=== PATIENT | male | born 1950 | race Caucasian/White ===

== ENCOUNTER 2018-01-14 08:02 | Emergency (ER) | payer MEDICARE, OTHER ==
[~2018-01-14] VITALS: Ht 167.6 cm; Wt 67.3 kg
[~2018-01-14 08:02] MED LIST: BENAZEPRIL HCL20 MG PO; CLOPIDOGREL75 M1 PO; LEVOTHYROXINE0.05 MG PO; LORAZEPAM0.5 M1 PO; PREDNISONE10 MG PO; SIMVASTATIN10 M1 PO; SYMBICORT1 AE3 IH; TAMSULOSIN HCL0.4 MG PO
[2018-01-14 08:50] LABS: EOS # 0.2 (0.04-0.40); HEMATOCRIT 45.6 % (42.0-52.0); HEMOGLOBIN 15.3 g/dL (13.5-18.0); LYMPH# 1.4 (1.50-4.00); MEAN CELL VOLUME 85 fl (78-100); MEAN CORPUSCULAR HEMOGLOBIN 28 pg (27-31); MEAN CORPUSCULAR HGB CONC 34 g/dL (33-37); MEAN PLATELET VOLUME 9.5 fl (7.4-10.4); NEU # 6.7 (1.40-6.50); PLATELET COUNT 195 K/mm3 (130-400); RED BLOOD COUNT 5.39 M/mm3 (4.20-5.60); WHITE BLOOD COUNT 9.3 K/mm3 (4.8-10.8)
[2018-01-14 08:57] LABS: ALBUMIN 3.7 g/dL (3.5-5.0); BUN/CREATININE RATIO 13.7 (6.0-26.0); CALCIUM 9.5 mg/dL (8.4-10.2); POTASSIUM 3.8 mmol/L (3.6-5.0); TOTAL BILIRUBIN 0.7 mg/dL (0.2-1.3); TOTAL PROTEIN 6.6 g/dL (6.3-8.2)
[2018-01-14 09:01] LABS: URINE APPEARANCE CLEAR; URINE BILIRUBIN NEGATIVE (NEGATIVE); URINE BLOOD NEGATIVE (NEGATIVE); URINE COLOR YELLOW; URINE GLUCOSE NEGATIVE (NEGATIVE); URINE KETONE NEGATIVE (NEGATIVE); URINE LEUKOCYTE ESTERASE NEGATIVE (NEGATIVE); URINE MUCUS PRESENT (NOT PRESENT); URINE NITRATE NEGATIVE (NEGATIVE); URINE PROTEIN(semi-quant) TRACE mg/dL (NEGATIVE); URINE UROBILINOGEN NORMAL (NORMAL); URINE WBC 0-1 /hpf (0-3)
[2018-01-14] MEDS ORDERED: MIRALAX119 GM PO (11:14)
[2018-01-14] MEDS ORDERED: NAPROSYN500 M1 PO (11:14)
[2018-01-14 11:23] VITALS: BP 115/70
== END 2018-01-14 11:19 | disposition home or self-care (01) ==
LOC: ED 08:02
PROVIDERS: Physician Assistant
DX: K59.00 Constipation, unspecified (principal); S39.011A Strain of muscle, fascia and tendon of abdomen, initial encounter; X50.9XXA Other and unspecified overexertion or strenuous movements or postures, initial encounter; I10 Essential (primary) hypertension; E78.5 Hyperlipidemia, unspecified; Z86.73 Personal history of transient ischemic attack (TIA), and cerebral infarction without residual deficits; E03.9 Hypothyroidism, unspecified; N40.0 Benign prostatic hyperplasia without lower urinary tract symptoms; G25.81 Restless legs syndrome; J45.909 Unspecified asthma, uncomplicated; Z79.02 Long term (current) use of antithrombotics/antiplatelets
CPT/HCPCS: J7030; Q9967

== ENCOUNTER → 2020-02-24 | Outpatient (CLI) | payer MEDICARE, OTHER ==
[~2020-02-24] MED LIST changes: +MIRALAX119 GM PO; +NAPROSYN500 M1 PO
[2020-02-24 10:16] LABS: HEMATOCRIT 41.8 % (42.0-52.0); HEMOGLOBIN 13.6 g/dL (13.5-18.0); MEAN CELL VOLUME 84 fl (78-100); MEAN CORPUSCULAR HEMOGLOBIN 27 pg (27-31); MEAN CORPUSCULAR HGB CONC 33 g/dL (33-37); MEAN PLATELET VOLUME 9.4 fl (7.4-10.4); PLATELET COUNT 319 K/mm3 (130-400); RED BLOOD COUNT 4.98 M/mm3 (4.20-5.60); RED CELL DISTRIBUTION WIDTH 13.9 % (11.5-14.5); WHITE BLOOD COUNT 12.7 K/mm3 (4.8-10.8)
[2020-02-24 10:19] LABS: ALBUMIN 3.9 g/dL (3.4-4.8); POTASSIUM 4.2 mmol/L (3.5-5.1)
[2020-02-24 10:20] LABS: CALCIUM 9.6 mg/dL (8.3-10.5)
[2020-02-24 10:21] LABS: TOTAL PROTEIN 7.3 g/dL (6.2-8.1)
[2020-02-24 10:23] LABS: TOTAL BILIRUBIN 0.5 mg/dL (0.2-1.2)
[2020-02-24 10:28] LABS: MAGNESIUM 1.94 mg/dL (1.60-2.60)
[2020-02-24 10:32] LABS: PARTIAL THROMBOPLASTIN TIME 25.2 SECONDS (21.0-32.0); PROTHROMBIN TIME 9.9 SECONDS (9.0-12.0)
[2020-02-24 11:42] LABS: LYMPHOCYTE 11 % (20-51); MONOCYTE 10 % (3-10); NEUTROPHILS 74 % (42-75)
[2020-02-24 14:24] LABS: PH-URINE 5.5 (5.0 - 8.0); URINE APPEARANCE CLOUDY; URINE COLOR YELLOW; URINE GLUCOSE NEGATIVE (NEGATIVE); URINE PROTEIN(semi-quant) TRACE mg/dL (NEGATIVE)
[2020-02-24 14:25] LABS: URINE BILIRUBIN NEGATIVE (NEGATIVE); URINE BLOOD TRACE (NEGATIVE); URINE KETONE 1+ (NEGATIVE); URINE LEUKOCYTE ESTERASE TRACE (NEGATIVE); URINE NITRATE NEGATIVE (NEGATIVE); URINE UROBILINOGEN NORMAL (NORMAL)
== END ==
LOC: RAD 09:38
PROVIDERS: Internal Medicine
DX: Z01.818 Encounter for other preprocedural examination (principal); I73.9 Peripheral vascular disease, unspecified

== ENCOUNTER → 2020-02-25 | Outpatient (CLI) | payer MEDICARE, OTHER | LOC: CARDREHAB 08:39 → CARDLAB 12:39 | DX: Z01.818 Encounter for other preprocedural examination (principal); I73.9 Peripheral vascular disease, unspecified | CPT/HCPCS: A9500 ==

== ENCOUNTER → 2020-05-09 | Outpatient (CLI) | payer MEDICARE, OTHER ==
[2020-05-09 11:57] LABS: EOS # 0.6 (0.04-0.40); HEMATOCRIT 44.3 % (42.0-52.0); HEMOGLOBIN 13.9 g/dL (13.5-18.0); LYMPH# 1.3 (1.50-4.00); MEAN CELL VOLUME 83 fl (78-100); MEAN CORPUSCULAR HEMOGLOBIN 26 pg (27-31); MEAN CORPUSCULAR HGB CONC 31 g/dL (33-37); MEAN PLATELET VOLUME 9.1 fl (7.4-10.4); MONO # 0.8 (0.20-0.80); NEU # 5.2 (1.40-6.50); PLATELET COUNT 266 K/mm3 (130-400); RED BLOOD COUNT 5.36 M/mm3 (4.20-5.60); WHITE BLOOD COUNT 7.9 K/mm3 (4.8-10.8)
[2020-05-09 12:02] LABS: POTASSIUM 4.1 mmol/L (3.5-5.1)
[2020-05-09 12:03] LABS: CALCIUM 9.5 mg/dL (8.3-10.5)
[2020-05-09 12:05] LABS: TOTAL PROTEIN 7.5 g/dL (6.2-8.1)
[2020-05-09 12:07] LABS: TOTAL BILIRUBIN 0.5 mg/dL (0.2-1.2)
[2020-05-09 12:54] LABS: EOS % 7.7 % (0.0-4.0)
== END ==
LOC: LAB 11:42
PROVIDERS: Internal Medicine
DX: Z12.5 Encounter for screening for malignant neoplasm of prostate (principal); I10 Essential (primary) hypertension; E78.5 Hyperlipidemia, unspecified; R20.2 Paresthesia of skin

== ENCOUNTER 2020-10-09 16:55 | Emergency (ER) | payer MEDICARE, OTHER ==
[2020-10-09 17:32] LABS: HEMOGLOBIN 13.2 g/dL (13.5-18.0); MEAN CELL VOLUME 81 fl (78-100); MEAN CORPUSCULAR HEMOGLOBIN 27 pg (27-31); MEAN CORPUSCULAR HGB CONC 33 g/dL (33-37); MEAN PLATELET VOLUME 9.4 fl (7.4-10.4); PLATELET COUNT 209 K/mm3 (130-400); RED BLOOD COUNT 4.97 M/mm3 (4.20-5.60); RED CELL DISTRIBUTION WIDTH 14.6 % (11.5-14.5); WHITE BLOOD COUNT 11.4 K/mm3 (4.8-10.8)
[2020-10-09] MEDS ORDERED: VITAMIN D325 MC1 PO (17:35)
[2020-10-09] MEDS ORDERED: BUDESONIDE-FO10.2 GM IH (17:35)
[2020-10-09] MEDS ORDERED: FAMOTIDINE20 MG PO (17:36)
[2020-10-09] MEDS ORDERED: NEURONTIN300 MG/CAP (17:36)
[2020-10-09] MEDS ORDERED: SINGULAIR 110 MG/TAB PO (17:38)
[2020-10-09] MEDS ORDERED: FLOMAX0.4 MG PO (17:38)
[2020-10-09 17:40] LABS: LYMPHOCYTE 8 % (20-51); MONOCYTE 11 % (3-10); NEUTROPHILS 80 % (42-75)
[2020-10-09 17:41] LABS: ALBUMIN 3.3 g/dL (3.4-4.8); POTASSIUM 3.8 mmol/L (3.5-5.1)
[2020-10-09 17:42] LABS: SODIUM 133 mmol/L (136-145)
[2020-10-09 17:44] LABS: GLUCOSE 116 mg/dL (75-110); TOTAL PROTEIN 6.5 g/dL (6.2-8.1)
[2020-10-09 17:45] LABS: CARBON DIOXIDE 25 mmol/L (23-31)
[2020-10-09 17:46] LABS: D-DIMER 0.75 mg/L FEU (0.15-0.50); TOTAL BILIRUBIN 0.6 mg/dL (0.2-1.2)
[2020-10-09 17:49] LABS: AST-SGOT 10 U/L (5-34)
[2020-10-09 17:50] LABS: ALT/SGPT 13 U/L (0-55)
[2020-10-09 17:56] LABS: TROPONIN-I < 0.03 ng/mL (<0.030)
[2020-10-09 18:39] LABS: ERYTHROCYTE SEDIMENTATION RATE 70 mm/hr (0-20)
[2020-10-09] MEDS ORDERED: AUGMENTIN 875-1 EAC1 PO ×5 (19:05→19:37)
[2020-10-09] MEDS ORDERED: MORGIDOX 1X100100 MG PO ×3 (19:08→19:37)
[2020-10-09] MEDS ORDERED: NYSTATIN 100MU/M1 ML PO ×3 (19:08→19:39)
[2020-10-09 19:36] VITALS: BP 135/100
== END 2020-10-09 19:36 | disposition home or self-care (01) ==
LOC: ED 16:55
PROVIDERS: Physician Assistant
DX: J18.9 Pneumonia, unspecified organism (principal); K42.9 Umbilical hernia without obstruction or gangrene; B37.9 Candidiasis, unspecified; I10 Essential (primary) hypertension; J44.9 Chronic obstructive pulmonary disease, unspecified; E03.9 Hypothyroidism, unspecified; E78.5 Hyperlipidemia, unspecified; Z20.828 Contact with and (suspected) exposure to other viral communicable diseases; Z79.890 Hormone replacement therapy; Z79.51 Long term (current) use of inhaled steroids
CPT/HCPCS: Q9967

== ENCOUNTER → 2020-11-08 | Outpatient (CLI) | payer MEDICARE, OTHER ==
[2020-10-09 19:36] VITALS: BP 135/100
[~2020-11-08] MED LIST changes: +AUGMENTIN 875-1 EAC1 PO; +BUDESONIDE-FO10.2 GM IH; +FAMOTIDINE20 MG PO; +FLOMAX0.4 MG PO; +MORGIDOX 1X100100 MG PO; +NEURONTIN300 MG/CAP; +NYSTATIN 100MU/M1 ML PO; +SINGULAIR 110 MG/TAB PO; +VITAMIN D325 MC1 PO
== END ==
LOC: RAD 09:00
DX: K57.30 Diverticulosis of large intestine without perforation or abscess without bleeding (principal); K86.9 Disease of pancreas, unspecified
CPT/HCPCS: Q9967

== ENCOUNTER → 2020-11-09 | Outpatient (CLI) | payer MEDICARE, OTHER | LOC: RAD 14:22 | DX: K86.2 Cyst of pancreas (principal) | CPT/HCPCS: A9585 ==

== ENCOUNTER → 2021-04-16 | Outpatient (CLI) | payer MEDICARE, OTHER ==
[2021-04-16 09:20] LABS: BASO # 0.04 (0.02-0.10); EOS # 0.12 (0.04-0.40); EOS % 1.6 % (0.0-4.0); HEMATOCRIT 45.1 % (42.0-52.0); HEMOGLOBIN 14.9 g/dL (13.5-18.0); LYMPH# 1.07 (1.50-4.00); MEAN CELL VOLUME 82 fl (78-100); MEAN CORPUSCULAR HEMOGLOBIN 27 pg (27-31); MEAN CORPUSCULAR HGB CONC 33 g/dL (33-37); MEAN PLATELET VOLUME 9.3 fl (7.4-10.4); MONO # 0.57 (0.20-0.80); NEU # 5.44 (1.40-6.50); PLATELET COUNT 260 K/mm3 (130-400); RED BLOOD COUNT 5.47 M/mm3 (4.20-5.60); RED CELL DISTRIBUTION WIDTH 14.4 % (11.5-14.5); WHITE BLOOD COUNT 7.5 K/mm3 (4.8-10.8)
[2021-04-16 09:32] LABS: ALBUMIN 3.8 g/dL (3.4-4.8); POTASSIUM 4.4 mmol/L (3.5-5.1)
[2021-04-16 09:33] LABS: CALCIUM 9.1 mg/dL (8.3-10.5)
[2021-04-16 09:35] LABS: TOTAL PROTEIN 7.1 g/dL (6.2-8.1)
[2021-04-16 09:36] LABS: TOTAL BILIRUBIN 0.4 mg/dL (0.2-1.2)
[2021-04-16 09:41] LABS: MAGNESIUM 1.98 mg/dL (1.60-2.60)
[2021-04-16 11:02] LABS: ERYTHROCYTE SEDIMENTATION RATE 28 mm/hr (0-20)
[2021-04-17 00:31] LABS: IMMUNOGLOBULIN E, TOTAL 741 IU/mL (0-100)
== END ==
LOC: LAB 08:46
PROVIDERS: Internal Medicine
DX: Z12.11 Encounter for screening for malignant neoplasm of colon (principal); Z12.5 Encounter for screening for malignant neoplasm of prostate; E03.4 Atrophy of thyroid (acquired); K90.9 Intestinal malabsorption, unspecified; I10 Essential (primary) hypertension; J30.1 Allergic rhinitis due to pollen

== ENCOUNTER → 2021-04-20 | Outpatient (CLI) | payer MEDICARE, OTHER | LOC: LAB 09:53 | DX: Z12.11 Encounter for screening for malignant neoplasm of colon (principal) ==

== ENCOUNTER → 2021-11-21 | Outpatient (CLI) | payer MEDICARE, OTHER | LOC: RAD 11:57 | DX: S22.31XA Fracture of one rib, right side, initial encounter for closed fracture (principal) ==

== ENCOUNTER → 2022-02-13 | Outpatient (CLI) | payer MEDICARE, OTHER | LOC: RAD 08:01 | DX: J01.20 Acute ethmoidal sinusitis, unspecified (principal); S09.90XD Unspecified injury of head, subsequent encounter ==

== ENCOUNTER → 2022-04-23 | Outpatient (CLI) | payer MEDICARE, OTHER ==
[2022-04-23 09:31] LABS: BASO # 0.05 K/mm3 (0.02-0.10); EOS # 0.13 K/mm3 (0.04-0.40); HEMATOCRIT 45.5 % (42.0-52.0); HEMOGLOBIN 14.8 g/dL (13.5-18.0); LYMPH# 1.09 K/mm3 (1.50-4.00); MEAN CELL VOLUME 84 fl (78-100); MEAN CORPUSCULAR HEMOGLOBIN 27 pg (27-31); MEAN CORPUSCULAR HGB CONC 33 g/dL (33-37); MEAN PLATELET VOLUME 9.2 fl (7.4-10.4); MONO # 0.54 K/mm3 (0.20-0.80); NEU # 4.75 K/mm3 (1.40-6.50); PLATELET COUNT 199 K/mm3 (130-400); RED BLOOD COUNT 5.44 M/mm3 (4.20-5.60); RED CELL DISTRIBUTION WIDTH 14.7 % (11.5-14.5); WHITE BLOOD COUNT 6.6 K/mm3 (4.8-10.8)
[2022-04-23 09:37] LABS: ALBUMIN 3.9 g/dL (3.4-4.8); POTASSIUM 4.1 mmol/L (3.5-5.1)
[2022-04-23 09:38] LABS: CALCIUM 9.2 mg/dL (8.3-10.5)
[2022-04-23 09:40] LABS: TOTAL PROTEIN 6.7 g/dL (6.2-8.1)
[2022-04-23 09:41] LABS: TOTAL BILIRUBIN 0.8 mg/dL (0.2-1.2)
[2022-04-23 10:39] LABS: ERYTHROCYTE SEDIMENTATION RATE 3 mm/hr (0-20)
== END ==
LOC: LAB 09:06
PROVIDERS: Internal Medicine
DX: Z12.5 Encounter for screening for malignant neoplasm of prostate (principal); Z12.11 Encounter for screening for malignant neoplasm of colon; E03.4 Atrophy of thyroid (acquired); K90.9 Intestinal malabsorption, unspecified; I10 Essential (primary) hypertension; E78.2 Mixed hyperlipidemia; J44.9 Chronic obstructive pulmonary disease, unspecified; G63 Polyneuropathy in diseases classified elsewhere; K21.00 Gastro-esophageal reflux disease with esophagitis, without bleeding; G25.81 Restless legs syndrome

== ENCOUNTER → 2022-09-26 | Outpatient (CLI) | payer MEDICARE, OTHER ==
[2022-09-26 08:57] LABS: BASO # 0.05 K/mm3 (0.02-0.10); EOS # 0.36 K/mm3 (0.04-0.40); EOS % 3.8 % (0.0-4.0); HEMOGLOBIN 14.9 g/dL (13.5-18.0); MEAN CELL VOLUME 84 fl (78-100); MEAN CORPUSCULAR HEMOGLOBIN 27 pg (27-31); MEAN CORPUSCULAR HGB CONC 32 g/dL (33-37); MEAN PLATELET VOLUME 9.9 fl (7.4-10.4); MONO # 0.64 K/mm3 (0.20-0.80); NEU # 6.79 K/mm3 (1.40-6.50); PLATELET COUNT 180 K/mm3 (130-400); RED BLOOD COUNT 5.49 M/mm3 (4.20-5.60); RED CELL DISTRIBUTION WIDTH 13.5 % (11.5-14.5); WHITE BLOOD COUNT 9.4 K/mm3 (4.8-10.8)
[2022-09-26 09:07] LABS: ALBUMIN 3.9 g/dL (3.4-4.8); POTASSIUM 4.3 mmol/L (3.5-5.1)
[2022-09-26 09:08] LABS: CALCIUM 9.2 mg/dL (8.3-10.5)
[2022-09-26 09:09] LABS: TOTAL PROTEIN 6.9 g/dL (6.2-8.1)
[2022-09-26 09:11] LABS: TOTAL BILIRUBIN 0.9 mg/dL (0.2-1.2)
[2022-09-26 09:16] LABS: MAGNESIUM 1.86 mg/dL (1.60-2.60)
[2022-09-26 10:19] LABS: ERYTHROCYTE SEDIMENTATION RATE 3 mm/hr (0-20)
== END ==
LOC: LAB 08:32
PROVIDERS: Internal Medicine
DX: I10 Essential (primary) hypertension (principal); E03.4 Atrophy of thyroid (acquired); E78.2 Mixed hyperlipidemia; K90.9 Intestinal malabsorption, unspecified; J44.9 Chronic obstructive pulmonary disease, unspecified; G63 Polyneuropathy in diseases classified elsewhere; K21.00 Gastro-esophageal reflux disease with esophagitis, without bleeding; G25.81 Restless legs syndrome; E53.8 Deficiency of other specified B group vitamins; Z23 Encounter for immunization

== ENCOUNTER → 2023-10-24 | Outpatient (CLI) | payer MEDICARE, OTHER ==
[2023-10-24 09:02] LABS: BASO # 0.06 K/mm3 (0.02-0.10); EOS # 0.27 K/mm3 (0.04-0.40); EOS % 3.3 % (0.0-4.0); HEMATOCRIT 47.9 % (42.0-52.0); HEMOGLOBIN 15.4 g/dL (13.5-18.0); LYMPH# 1.49 K/mm3 (1.50-4.00); MEAN CELL VOLUME 86 fl (78-100); MEAN CORPUSCULAR HEMOGLOBIN 28 pg (27-31); MEAN CORPUSCULAR HGB CONC 32 g/dL (33-37); MEAN PLATELET VOLUME 9.9 fl (7.4-10.4); MONO # 0.55 K/mm3 (0.20-0.80); PLATELET COUNT 178 K/mm3 (130-400); RED CELL DISTRIBUTION WIDTH 14.2 % (11.5-14.5); WHITE BLOOD COUNT 8.1 K/mm3 (4.8-10.8)
[2023-10-24 09:11] LABS: ALBUMIN 3.9 g/dL (3.4-4.8)
[2023-10-24 09:12] LABS: CALCIUM 9.4 mg/dL (8.3-10.5)
[2023-10-24 09:13] LABS: TOTAL PROTEIN 6.8 g/dL (6.2-8.1)
[2023-10-24 09:15] LABS: TOTAL BILIRUBIN 0.7 mg/dL (0.2-1.2)
[2023-10-24 09:20] LABS: MAGNESIUM 2.01 mg/dL (1.60-2.60)
[2023-10-24 19:47] LABS: HEPATITIS C VIRUS ANTIBODY Negative (Negative)
== END ==
LOC: LAB 08:43
PROVIDERS: Internal Medicine
DX: Z11.59 Encounter for screening for other viral diseases (principal); E03.4 Atrophy of thyroid (acquired); I10 Essential (primary) hypertension; E78.2 Mixed hyperlipidemia; K90.9 Intestinal malabsorption, unspecified

== ENCOUNTER → 2023-11-04 | Outpatient (CLI) | payer MEDICARE, OTHER | LOC: RAD 10:43 | DX: K86.2 Cyst of pancreas (principal) | CPT/HCPCS: A9575 ==

== ENCOUNTER → 2024-04-23 | Outpatient (CLI) | payer MEDICARE, OTHER ==
[2024-04-23 09:14] LABS: BASO # 0.05 K/mm3 (0.02-0.10); EOS # 0.29 K/mm3 (0.04-0.40); EOS % 4.3 % (0.0-4.0); HEMATOCRIT 46.3 % (42.0-52.0); HEMOGLOBIN 14.9 g/dL (13.5-18.0); LYMPH# 1.35 K/mm3 (1.50-4.00); MEAN CELL VOLUME 84 fl (78-100); MEAN CORPUSCULAR HEMOGLOBIN 27 pg (27-31); MEAN CORPUSCULAR HGB CONC 32 g/dL (33-37); MEAN PLATELET VOLUME 9.7 fl (7.4-10.4); MONO # 0.51 K/mm3 (0.20-0.80); NEU # 4.52 K/mm3 (1.40-6.50); PLATELET COUNT 182 K/mm3 (130-400); RED BLOOD COUNT 5.54 M/mm3 (4.20-5.60); RED CELL DISTRIBUTION WIDTH 14.1 % (11.5-14.5); WHITE BLOOD COUNT 6.8 K/mm3 (4.8-10.8)
[2024-04-23 09:15] LABS: ALBUMIN 3.8 g/dL (3.4-4.8)
[2024-04-23 09:16] LABS: CALCIUM 9.4 mg/dL (8.3-10.5)
[2024-04-23 09:17] LABS: TOTAL PROTEIN 6.6 g/dL (6.2-8.1)
[2024-04-23 09:19] LABS: TOTAL BILIRUBIN 0.8 mg/dL (0.2-1.2)
[2024-04-23 09:24] LABS: MAGNESIUM 1.96 mg/dL (1.60-2.60)
== END ==
LOC: LAB 08:56
PROVIDERS: Internal Medicine
DX: Z12.5 Encounter for screening for malignant neoplasm of prostate (principal); E03.4 Atrophy of thyroid (acquired); I10 Essential (primary) hypertension; E78.2 Mixed hyperlipidemia

== ENCOUNTER → 2024-10-18 | Outpatient (CLI) | payer MEDICARE, OTHER ==
[~2024-10-18] MED LIST changes: +Iohexol 300 - 100 ML VIAL IV ONE
[2024-10-18 09:14] LABS: BASO # 0.03 K/mm3 (0.02-0.10); EOS # 0.32 K/mm3 (0.04-0.40); EOS % 5.4 % (0.0-4.0); HEMOGLOBIN 15.2 g/dL (13.5-18.0); LYMPH# 1.79 K/mm3 (1.50-4.00); MEAN CELL VOLUME 83 fl (78-100); MEAN CORPUSCULAR HEMOGLOBIN 27 pg (27-31); MEAN CORPUSCULAR HGB CONC 32 g/dL (33-37); MEAN PLATELET VOLUME 10.7 fl (7.4-10.4); MONO # 0.56 K/mm3 (0.20-0.80); NEU # 3.22 K/mm3 (1.40-6.50); PLATELET COUNT 171 K/mm3 (130-400); RED BLOOD COUNT 5.66 M/mm3 (4.20-5.60); RED CELL DISTRIBUTION WIDTH 14.8 % (11.5-14.5)
[2024-10-18 09:27] LABS: ALBUMIN 3.8 g/dL (3.4-4.8)
[2024-10-18 09:28] LABS: CALCIUM 9.2 mg/dL (8.3-10.5)
[2024-10-18 09:30] LABS: TOTAL PROTEIN 6.8 g/dL (6.2-8.1)
[2024-10-18 09:32] LABS: TOTAL BILIRUBIN 0.6 mg/dL (0.2-1.2)
[2024-10-18 09:37] LABS: MAGNESIUM 1.87 mg/dL (1.60-2.60)
== END ==
LOC: LAB 08:53
PROVIDERS: Internal Medicine
DX: Z12.5 Encounter for screening for malignant neoplasm of prostate (principal); E03.4 Atrophy of thyroid (acquired); I10 Essential (primary) hypertension; E78.2 Mixed hyperlipidemia; K90.9 Intestinal malabsorption, unspecified; R10.84 Generalized abdominal pain
CPT/HCPCS: Q9967